=== PATIENT | male | born 1990 | race Caucasian/White ===

== ENCOUNTER 2019-12-29 08:18 | Emergency (ER) | payer BC ==
[~2019-12-29] VITALS: Ht 185.4 cm; Wt 104.5 kg
[2019-12-29 09:45] LABS: RAPID GROUP A STREP NEGATIVE (NEGATIVE)
[2019-12-29 09:51] LABS: INFLUENZA TYPE A NEGATIVE FOR TYPE A (NEGATIVE); INFLUENZA TYPE B NEGATIVE FOR TYPE B (NEGATIVE)
[2019-12-29 10:20] VITALS: BP 131/85
== END 2019-12-29 10:30 | disposition home or self-care (01) ==
LOC: EMS 08:25
DX: U07.1 COVID-19 (principal); J02.9 Acute pharyngitis, unspecified; R51 Headache
CPT/HCPCS: 87430; 87804; 99283; U0003